=== PATIENT | female | born 1960 | race Caucasian/White ===

== ENCOUNTER 2023-04-06 10:26 | Day surgery (SDC) | payer OTHER ==
[~2023-04-06] VITALS: Ht 144.8 cm; Wt 61.7 kg
[2023-04-06] MEDS ORDERED: fentaNYL citrate 0.05 MG/ML VIAL ONE (12:55)
[2023-04-06] MEDS: fentaNYL citrate 0.05 MG/ML VIAL IVP ONE (13:15)
[2023-04-06] MEDS: LIDOCAINE 2% 100 MG/5 ML UJET TP ONE (13:29)
== END 2023-04-06 14:40 | disposition home or self-care (01) ==
LOC: MDS 10:26 → MMU 10:32 → MDS 14:40
PROVIDERS: ATTEND Internal Medicine Gastroenterology
DX: Z12.11 Encounter for screening for malignant neoplasm of colon (principal); K63.5 Polyp of colon; K57.30 Diverticulosis of large intestine without perforation or abscess without bleeding; I10 Essential (primary) hypertension; E11.9 Type 2 diabetes mellitus without complications; E05.90 Thyrotoxicosis, unspecified without thyrotoxic crisis or storm; Z79.899 Other long term (current) drug therapy
CPT/HCPCS: 45385; 82948; J3010